=== PATIENT | female | born 1990 | race African-American/Black ===

== ENCOUNTER 2018-11-05 08:54 | Emergency (ER) | payer OTHER ==
[2018-11-05] MEDS ORDERED: AMOXICILLIN500 M2 PO (09:48)
[2018-11-05 10:07] VITALS: BP 127/64
== END 2018-11-05 10:06 | disposition home or self-care (01) ==
LOC: ED 08:54
DX: J02.0 Streptococcal pharyngitis (principal); R05 Cough

== ENCOUNTER 2018-12-25 09:46 | Emergency (ER) | payer OTHER ==
[~2018-12-25] VITALS: Ht 172.7 cm; Wt 100.0 kg
[~2018-12-25 09:46] MED LIST: AMOXICILLIN500 M2 PO
[2018-12-25 11:08] VITALS: BP 124/77
== END 2018-12-25 11:38 | disposition home or self-care (01) ==
LOC: ED 09:46
DX: S60.011A Contusion of right thumb without damage to nail, initial encounter (principal); X50.0XXA Overexertion from strenuous movement or load, initial encounter; Y92.009 Unspecified place in unspecified non-institutional (private) residence as the place of occurrence of the external cause

== ENCOUNTER 2019-04-06 10:52 | Emergency (ER) | payer OTHER ==
[~2019-04-06] VITALS: Ht 172.7 cm; Wt 90.0 kg
[2019-04-06] MEDS ORDERED: ZOFRAN4 MG/TAB PO (11:41)
[2019-04-06 11:44] VITALS: BP 114/46
== END 2019-04-06 11:54 | disposition home or self-care (01) ==
LOC: ED 10:52
DX: B34.9 Viral infection, unspecified (principal)